=== PATIENT | female | born 1950 | race Caucasian/White ===

== ENCOUNTER 2025-03-21 19:22 | Emergency (ER) | payer OTHER ==
[~2025-03-21] VITALS: Ht 147.3 cm; Wt 57.0 kg
--- NOTE | 2025-03-21 20:17 | DVH ---
CLINICAL HISTORY: fall TECHNIQUE: Helical scanning was performed of the head from the skull base to the vertex. Multiplanar reconstructions were performed. This exam was performed according to our departmental dose optimizat ion program. Up-to-date CT equipment and radiation dose reduction techniques are utilized as appropri ate. CTDI 51 DLP 809 COMPARISON: None FINDINGS: There is no evidence for acute intracranial hemorrhage, acute ischemic changes, mass, mass effect, or extra-axial fluid collection. There is no hydrocephalus or midline shift. There is no effacement of the cerebral sulci and basal subarachnoid cisterns. The mack-white matter differentiation is well ann ntained. There is moderate brain volume loss and mild chronic small vessel ischemic change. There are old left putamen in right pontine lacunar infarct. There are small [id number]-pusy-right cerebellar infarct s. There is a [id number] old right frontal lobe infarct. There is a small old left posterior fr ontal lobe infarct. There are old bilateral occipital lobe infarcts. There is an old right thalamic l acunar infarct. There has been bilateral cataract extraction. The imaged paranasal sinuses are clear. IMPRESSION: No acute intracranial abnormality seen. 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 Please read above for details.
--- NOTE | 2025-03-21 20:51 | ED.PDOC ---
History of Present Illness HPI Comments 74-year-old female complaining of mild headache. Patient states she was getting up from the bathroom when she fell forward hitting her head on the tile. No loss of consciousness. States she went to [facility] and they advised that she come in for head CT. Wounds were dressed and wrapped at [facility]. Patient had abrasion on her left side cheek and right wrist. Patient denies being on any blood thinners. Chief Complaint: Fall Injury Time Seen by MD: 19:37 Reviewed Notes: Nurses Notes Allergies: Coded Allergies: NO KNOWN ALLERGIES (Unverified , 03/21/25) Information Source: Patient Mode of Arrival: Wheelchair Past Medical History PAST MEDICAL HISTORY: Denies Surgical History: Denies all surgeries CLAY GRINDER History: No Pertinent CLAY GRINDER History Constitutional: denies: chills, diaphoresis, fatigue, fever, malaise, sweats, weakness, others EENTM: denies: blurred vision, double vision, ear bleeding, ear discharge, ear drainage, ear pain, ear ringing, eye pain, eye redness, hearing loss, mouth pain, mouth swelling, nasal discharge, nose bleeding, nose congestion, nose pain, photophobia, tearing, throat pain, throat swelling, voice changes, others Respiratory: denies: cough, hemoptysis, orthopnea, SOB at rest, shortness of breath, SOB with excertion, stridor, wheezing, others Cardiovascular: denies: chest pain, dizzy spells, diaphoresis, Dyspnea on exertion, edema, irregular heart beat, left arm pain, lightheadedness, palpitations, PND, syncope, others Gastrointestinal: denies: abdomen distended, abdominal pain, blood streaked bowels, constipated, diarrhea, dysphagia, difficulty swallowing, hematemesis, melena, nausea, poor appetite, poor fluid intake, rectal bleeding, rectal pain, vomiting, others Genitourinary: denies: abnormal vagina bleeding, burning, dyspareunia, dysuria, flank pain, frequency, hematuria, incontinence, pain, , vagina discharge , urgency, others Neurological: denies: dizziness, fainting, headache, left sided numbness, left sided weakness, numbness, paresthesia, pre-existing deficit, right sided numbness, right sided weakness, seizure, speech problems, tingling, tremors, weakness, others Musculoskeletal: denies: back pain, gout, joint pain, joint swelling, muscle pain, muscle stiffness, neck pain, others Integumetry: reports: wounds Physical Exam General Appearance: No Apparent Distress, Normal HEENT: Normal ENT Inspection, Pharynx Normal, TMs Normal Neck: Full Range of Motion, Non-Tender, Normal, Normal Inspection Respiratory: Chest Non-Tender, Lungs Clear, No Accessory Muscle Use, No Respiratory Distress, Normal Breath Sounds Cardiovascular: No Edema, No JVD, No Murmur, No Gallop, Normal Peripheral Pulses, Regular Rate/Rhythm Breast Exam: Deferred Gastrointestinal: No Organomegaly, Non Tender, No Pulsatile Mass, Normal Bowel Sounds, Soft Genitalia: Deferred Pelvic: Deferred Rectal: Deferred Extremities: No calf tenderness, Normal capillary refill, Normal inspection, Normal range of motion, Non-tender, No pedal edema Musculoskeletal : Apperance: Normal Neurologic: Alert, roller cleaner II-XII nml as Tested, No Motor Deficits, Normal Affect, Normal Mood, No Sensory Deficits Cerebellar Function: Normal Reflexes: Normal Skin: Dry, Normal Color, Warm Lymphatic: No Adenopathy Was a procedure done? Was a procedure done?: No Differential Dx Considerations may include: CVA, closed head injury, X-Ray, Labs, Meds, VS Vital Signs Date Time Temp Pulse Resp B/P (MAP) Pulse Ox O2 Delivery O2 Flow Rate FiO2 03/21/25 19:34 88 03/21/25 19:25 97.5 92 16 212/81 98 97.5 X-Ray, Labs, Meds, VS Comment Imaging was reviewed by this provider, there is no obvious pathological or acute disease process. Pending radiology review Labs were reviewed by this provider, no abnormalities Vital signs reviewed by this provider, clinically stable Time of 1ST Reevaluation: 20:51 Reevaluation 1ST: Improved Patient Education/Counseling: Diagnosis, Treatment, Need For Follow Up (Follow up with PCP next available appointment. Return to the emergency department if symptoms worsen.) Family Education/Counseling: Diagnosis SEPSIS Sepsis Screen Date sepsis recognized/suspect: Mar 21, 2025 Time Sepsis recognized/suspect: 1930 Recent Procedure: No On Antibiotic Therapy: No Respiratory Rate >20: No Heart Rate >90: Yes Temp<36 C (96.8 F) or >38.3 C: No SBP <90 or MAP <65 mmHG: No New Acute Mental Status Change: No Is the patient on CPAP, BIPAP,: No Physician Orders Electrocardigram (03/21/25 19:44) Head Without Contrast (03/21/25 19:47) Vital Signs Date Time Temp Pulse Resp B/P (MAP) Pulse Ox O2 Delivery O2 Flow Rate FiO2 03/21/25 19:34 88 03/21/25 19:25 97.5 92 16 212/81 98 97.5 Departure 1 Departure Time of Disposition: 20:51 Impression: Primary Impression: Closed head injury Qualified Codes: S09.90XA - Unspecified injury of head, initial encounter Disposition: HOME / SELF CARE / HOMELESS Condition: Fair Discharged With: Self Critical Care Note Critical Care Time?: No Stability Stability form required: No Heart Score Heart Score: Heart Score Response (Comments) Value History N/A 0 EKG N/A 0 Age N/A 0 Risk Factors N/A 0 Troponin N/A 0 Total 0 RANJEET RENEEP Mar 21, 2025 20:51
[2025-03-22 00:32] VITALS: BP 185/85; PULSE 112; RESP 18; TEMP 98.7; O2SAT 96
--- NOTE | 2025-03-22 06:08 | ECG ---
[facility] Test Date: 2025-03-21 Test Time: 19:34:46 Pat Name: [facility] Department: Room: Gender: F Co Founder: : 1950 Requested By: RANJEET RENEE Order Number: [id number] Reading MD: Kranthi Walker Measurements Intervals [place] Rate: 88 P: 68 HI: 130 QRS: 79 QRSD: 122 T: 22 QT: 403 QTc: 488 Interpretive Statements Sinus rhythm Right bundle branch block Electronically Signed On 03-24-2025 22:08:48 PDT by Kranthi Walker Please click the below link to view image of tracing.
== END 2025-03-22 00:35 | disposition home or self-care (01) ==
LOC: ER 19:22
DX: S00.81XA Abrasion of other part of head, initial encounter (principal); S60.812A Abrasion of left wrist, initial encounter; I63.9 Cerebral infarction, unspecified; W18.39XA Other fall on same level, initial encounter; Y93.89 Activity, other specified; Y92.89 Other specified places as the place of occurrence of the external cause; Y99.8 Other external cause status
CPT/HCPCS: 70450; 93005